=== PATIENT | female | born 1990 | race Caucasian/White ===

== ENCOUNTER 2018-12-30 13:38 | Inpatient (IN) | payer OTHER ==
[2018-12-30] MEDS ORDERED: OXYTOCIN 30 UNITS/LR 500 ML IV ×3 (14:00)
[2018-12-30] MEDS ORDERED: LIDOCAINE 1% (MPF) 30 ML INJ INJ (14:00)
[2018-12-30] MEDS ORDERED: CARBOPROST 250 MCG INJ IM (14:00)
[2018-12-30] MEDS ORDERED: METHYLERGONOVINE 0.2 MG INJ IM (14:00)
[2018-12-30] MEDS ORDERED: OXYCODONE/ASPIRIN (4.88/325) TAB PO (14:00)
[2018-12-30] MEDS ORDERED: BUTORPHANOL 2 MG INJ IV (14:00)
[2018-12-30] MEDS ORDERED: MISOPROSTOL 200 MCG TAB PR (14:00)
[2018-12-30] MEDS: LACTATED RINGER'S 1,000 ML IV ×3 (14:21→23:09)
[2018-12-30 15:22] LABS: ADD MAN DIFF? NO
[2018-12-30 15:23] LABS: WHITE BLOOD COUNT 7.2 10^3/ul (4.8-10.8)
[2018-12-30 15:23] LABS: BASOPHILS % 0.6 % (0.0-2.0); EOSINOPHILS # 0.1 10^3/ul (0.0-0.5); EOSINOPHILS % 1.1 % (0.0-7.0); LYMPHOCYTES # 1.3 10^3/ul (0.8-2.9); LYMPHOCYTES % 18.2 % (15.0-51.0); MEAN CORPUSCULAR HEMOGLOBIN 29.4 pg (29.0-33.0); MEAN CORPUSCULAR HGB CONC 33.3 g/dl (32.0-37.0); MEAN CORPUSCULAR VOLUME 88.2 fl (82.0-101.0); MEAN PLATELET VOLUME 11.1 fl (7.4-10.4); MONOCYTE # 0.7 10^3/ul (0.3-0.9); MONOCYTES % 9.1 % (0.0-11.0); NEUTROPHILS % 69.2 % (39.0-77.0); PLATELET COUNT 206 10^3/UL (140-415); RED BLOOD COUNT 3.74 10^6/ul (4.20-5.40); RED CELL DISTRIBUTION WIDTH 12.9 % (11.5-14.5)
[2018-12-30 15:43] LABS: INR 0.89; PROTIME 12.2 Sec (11.9-14.9)
[2018-12-30 15:44] LABS: PARTIAL THROMBOPLASTIN TIME 28.4 Sec (23.0-35.0)
[2018-12-30] MEDS ORDERED: MISOPROSTOL 50 MCG CAPSULE PO (16:00)
[2018-12-30] MEDS: MISOPROSTOL 50 MCG CAPSULE PO ×2 (16:07→20:00)
[2018-12-30 19:55] LABS: HEPATITIS B SURFACE ANTIGEN NEGATIVE (NEGATIVE)
[2018-12-30] MEDS ORDERED: FENTAnyl 2MCG/ML-ROPIV 0.2% 100 ML (21:16)
[2018-12-30] MEDS ORDERED: FENTAnyl 50 MCG/ML VIAL (21:16)
[2018-12-30] MEDS ORDERED: FENTAnyl 2MCG/ML-ROPIV 0.2% 100 ML BAG EPI (21:30)
[2018-12-30] MEDS ORDERED: NALOXONE (0.4 MG/ML) INJ IV (21:30)
[2018-12-30] MEDS: OXYTOCIN 30 UNITS/LR 500 ML IV (23:35)
[2018-12-31] MEDS ORDERED: METHYLERGONOVINE 0.2 MG INJ IM (03:30)
[2018-12-31] MEDS ORDERED: OXYCODONE/ASPIRIN (4.88/325) TAB PO (03:30)
[2018-12-31] MEDS ORDERED: OXYTOCIN 30 UNITS/LR 500 ML IV (03:30)
[2018-12-31] MEDS ORDERED: NACL 0.9% 3 ML SYG IV (03:30)
[2018-12-31] MEDS ORDERED: MISOPROSTOL 200 MCG TAB PR (03:30)
[2018-12-31] MEDS ORDERED: CARBOPROST 250 MCG INJ IM (03:30)
[2018-12-31] MEDS ORDERED: ACETAMINOPHEN 325 MG TAB PO (03:30)
[2018-12-31] MEDS: IBUPROFEN 600 MG TAB PO ×5 (03:36→23:59)
[2018-12-31] MEDS: WITCH HAZEL/GLYCERIN PAD PR (05:54)
[2018-12-31] MEDS: BENZOCAINE 20% 56 ML SPRAY TOP (05:54)
[2018-12-31] MEDS: LANOLIN HPA 1 PKT TOP (05:55)
[2018-12-31] MEDS: OXYTOCIN 30 UNITS/LR 500 ML IV (06:00)
[2018-12-31] MEDS: OXYCODONE/ASPIRIN (4.88/325) TAB PO (06:37)
[2018-12-31] MEDS: SENNA/DOCUSATE NA (8.6MG/50MG) TAB PO ×2 (09:14→20:50)
[2018-12-31 16:07] LABS: RAPID PLASMA REAGIN NONREACTIVE (NR)
[2019-01-01] MEDS: IBUPROFEN 600 MG TAB PO ×4 (05:43→23:34)
[2019-01-01 09:15] LABS: ADD MAN DIFF? NO
[2019-01-01 09:18] LABS: BASOPHILS % 0.3 % (0.0-2.0); EOSINOPHILS # 0.1 10^3/ul (0.0-0.5); EOSINOPHILS % 1.1 % (0.0-7.0); HEMATOCRIT 31.1 % (37.0-47.0); HEMOGLOBIN 10.3 g/dl (12.0-16.0); LYMPHOCYTES # 1.9 10^3/ul (0.8-2.9); LYMPHOCYTES % 21.4 % (15.0-51.0); MEAN CORPUSCULAR HEMOGLOBIN 29.2 pg (29.0-33.0); MEAN CORPUSCULAR HGB CONC 33.1 g/dl (32.0-37.0); MEAN CORPUSCULAR VOLUME 88.1 fl (82.0-101.0); MEAN PLATELET VOLUME 11.1 fl (7.4-10.4); MONOCYTE # 0.6 10^3/ul (0.3-0.9); MONOCYTES % 7.3 % (0.0-11.0); NEUTROPHILS % 68.8 % (39.0-77.0); PLATELET COUNT 184 10^3/UL (140-415); RED BLOOD COUNT 3.53 10^6/ul (4.20-5.40)
[2019-01-01 09:18] LABS: WHITE BLOOD COUNT 8.7 10^3/ul (4.8-10.8)
[2019-01-01] MEDS: SENNA/DOCUSATE NA (8.6MG/50MG) TAB PO ×2 (09:18→21:00)
[2019-01-01] MEDS: OXYCODONE/ASPIRIN (4.88/325) TAB PO (16:19)
[2019-01-02] MEDS: IBUPROFEN 600 MG TAB PO ×2 (05:23→12:21)
[2019-01-02] MEDS: SENNA/DOCUSATE NA (8.6MG/50MG) TAB PO (08:47)
== END 2019-01-02 15:20 | disposition home or self-care (01) | DRG 807 ==
LOC: L-D 13:38 → PP1 12-31 05:08
PROVIDERS: Obstetrics & Gynecology
PROC: 10E0XZZ Delivery of Products of Conception, External Approach (ICD-10-PCS; principal; 2018-12-31)
PROC: 0HQ9XZZ Repair Perineum Skin, External Approach (ICD-10-PCS; 2018-12-31)
DX: O70.0 First degree perineal laceration during delivery (principal); Z37.0 Single live birth; O69.81X0 Labor and delivery complicated by cord around neck, without compression, not applicable or unspecified; Z3A.40 40 weeks gestation of pregnancy
CPT/HCPCS: 62322; 76815; 85025; 85610; 85730; 86592; 86850; 86900; 86901; 87340